=== PATIENT | female | born 1990 | race Hispanic/Latino ===

== ENCOUNTER 2017-04-13 14:39 | Emergency (ER) | payer BC, OTHER ==
[2017-04-13 15:54] VITALS: BMI 29.9
[2017-04-13 16:17] LABS: RBC URINE 1 /hpf (0-3); URINE BACTERIA RARE (<OCC); URINE BILIRUBIN NEGATIVE (NEGATIVE); URINE BLOOD NEGATIVE (NEGATIVE); URINE COLOR COLORLESS (YELLOW); URINE GLUCOSE (UA) NEG (Normal); URINE KETONE NEGATIVE (NEGATIVE); URINE LEUKOCYTE ESTERASE NEG Leu/uL (Negative); URINE PROTEIN NEGATIVE (NEGATIVE); URINE UROBILINOGEN 0.2-1.0 mg/dL (0.2-1.0); WBC URINE < 1 /hpf (0-5)
--- NOTE | 2017-04-13 17:00 | US ---
PROCEDURE: Ultrasound evaluation of the pelvis to measure the cervical length HISTORY: cramps COMPARISON: No prior similar study available for comparison. TECHNIQUE: Limited ultrasound examination of the pelvis was performed to evaluate the uterine cervical length. LMP: 11/16/2016. FINDINGS: The uterine cervix is closed and measures 2.3 centimeter. Trace amount of fluid seen in the cervix. IMPRESSION: Trace amount of fluid seen in the cervix. The cervix measures 2.3 centimeter.
--- NOTE | 2017-04-13 18:50 | OBHP ---
Datetime: 04/13/2017 16:01 IP Adm Impression: , intrauterine IP Admit Plan: Observation/Evaluation Admit Comment, IP Provider: 26 yo at 21+1 wks w/ EDC 08/23/2017 c/o cramps in lower abdomen, and painful ctxns in vagina, reports that venkat has had these sx throughout the preg, consistentl sin ce Wed. Pt reports yellow liquid started a few days ago. Pt's mother reports that she "did a little too much" on Sun. Pt denies VB, reports FM. Pt denies dysuria, itch. PMH: Asthma POBhx: TAB 2006 SAB 2007 TAB 2008 Twisting Department End Finder hx: 11 x regular Pt denies STDs, h/o abn paps? PSH: None All: NKDA Fam hx: MGM breast ca, MGF throat cancer, M great GF breast cancer, M aunt bone cancer Social hx: Pt reports that she quit smoking and MJ 2 months ago, denies alcohol use PE: AFVSS Gen'l Pt appears comfortable lying in bed Abd: soft, positive suprapubic tenderness, gravid Ext: NT Spec: white nl appearing d/c, no pool, nitrazine neg VE: closed/ thick A/P: 26 yo at 21+1 wks w/ vaginal contractions Ua negative, urine cx sent U/s: Cervical length 2.3 cm Case discussed w/ Dr. Monroy. Pt to go to [facility] tomorrow am for repeat cervical length a nd possible cerclage Plan dicussed w/ pt and her mom. All questions answered. Pt discharged home Extremities - PN: Normal Abdomen - PN: Normal General - PN: Normal FHR - Baseline A Provider: 140 Membranes, Provider: Intact Contraction Comments Provider: none Pool Provider: Positive Nitrazine Provider: Negative Vital Signs Provider: Reviewed IP Chief Complaint: Uterine contractions NICHD Variability Prov Fetus A: Moderate 6-25bpm NICHD Decel Fetus A IP Provider: None Dilatation, Provider: 0 Effacement, Provider: 0 Station, Provider: -3 Genitourinary Exam: Normal
--- NOTE | 2017-04-13 18:52 | OBDCSUM ---
Datetime: 04/13/2017 18:42 Discharged to, Provider: Home Follow up at, Provider: Disch Instr Activity: Normal activity Disch Instr Diet: Regular Discharge Instructions, Provider: Routine instructions given Discharge Time: 04/13/2017 18:45 Follow up in weeks, Provider: TOMORROW 04/14/17 at 0900 [facility] in [place], [place] Disch Referrals: None Contraception discussed, Prov: No Discharge Diagnosis Prov Other: Short cervical length
== END 2017-04-13 19:35 | disposition home or self-care (01) ==
LOC: H.EROB2 14:39
DX: O26.92 Pregnancy related conditions, unspecified, second trimester (principal); R10.2 Pelvic and perineal pain; Z3A.21 21 weeks gestation of pregnancy

== ENCOUNTER 2017-04-24 18:46 | Emergency (ER) | payer BC, OTHER ==
[2017-04-24 19:47] LABS: RBC URINE 1 /hpf (0-3); URINE BACTERIA RARE (<OCC); URINE BILIRUBIN NEGATIVE (NEGATIVE); URINE BLOOD NEGATIVE (NEGATIVE); URINE COLOR YELLOW (YELLOW); URINE GLUCOSE (UA) NEG (Normal); URINE KETONE NEGATIVE (NEGATIVE); URINE LEUKOCYTE ESTERASE NEG Leu/uL (Negative); URINE PROTEIN NEGATIVE (NEGATIVE); URINE UROBILINOGEN 0.2-1.0 mg/dL (0.2-1.0); WBC URINE 1 /hpf (0-5)
--- NOTE | 2017-04-24 19:57 | OBHP ---
Datetime: 04/24/2017 19:15 IP Adm Impression: , intrauterine ; No Active Labor IP Admit Plan: Observation/Evaluation Admit Comment, IP Provider: 26yo G 6 P 0050 IUP at 22w5d c/o back pain since earlier morning. Pain localized to right side. no meds taken. Unable to lie down comfortably. 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) A; IUP at 22w back pain appears to be musculoskeletal PLAN: tylenol 650mg po one dse check UA condition expained to pt and she understood...Dr Hagen aware of above...will wait for results of UA Extremities - PN: Normal Abdomen - PN: Normal Back - PN: Abnormal Breast - PN: Not Done Lungs - PN: Normal Heart - PN: Normal Thyroid - PN: Normal Neurologic - PN: Normal HEENT - PN: Normal General - PN: Normal FHR - Baseline A Provider: + Membranes, Provider: Intact Contraction Comments Provider: n/a Comments, ACOG Physical Exam: Back : right sided lumbar/thoracic paraspinal tenderness; no CVA tende rness ROS: General: no weakness; no fatigue HEENT: no CHANG; no visual dist CV: No CP; no palpitations Resp: no cough; no SOB GI: no N/V/D/ : no F/U/D Back: localized back pain on right side Pool Provider: Negative IP Hx Assessment: The History has been Reviewed and is Current EGA AdmitDate IP: 22.5 Vital Signs Provider: Reviewed IP Chief Complaint: Other Dilatation, Provider: closed Genitourinary Exam: Normal
[2017-04-24 19:58] VITALS: TEMP 98
== END 2017-04-24 20:30 | disposition home or self-care (01) ==
LOC: H.EROB2 18:46
DX: O26.92 Pregnancy related conditions, unspecified, second trimester (principal); M54.9 Dorsalgia, unspecified; Z3A.22 22 weeks gestation of pregnancy; O26.872 Cervical shortening, second trimester; O09.92 Supervision of high risk pregnancy, unspecified, second trimester

== ENCOUNTER 2017-04-25 17:27 | Emergency (ER) | payer BC, OTHER ==
[2017-04-25 18:54] LABS: HEMATOCRIT 32.8 % (34.0-47.0); MEAN CELL VOLUME 91.4 fl (81.0-99.0); MEAN CORPUSCULAR HGB CONC 33.9 g/dL (33.0-37.0); RED CELL DISTRIBUTION WIDTH 13.2 % (11.5-14.5); WHITE BLOOD COUNT 15.6 K/uL (4.8-10.8)
[2017-04-25 19:13] LABS: ALB/GLOB RATIO 1.3 (1.0-2.1); ALKALINE PHOSPHATASE 51 U/L (38-126); ALT/SGPT 57 U/L (9-52); AST/SGOT 27 U/L (14-36); BILIRUBIN,TOTAL 0.2 mg/dl (0.2-1.3); BLOOD UREA NITROGEN 10 mg/dl (7-17); CALCIUM 9.3 mg/dL (8.4-10.2); CARBON DIOXIDE 23 mmol/L (22-30); CHLORIDE 104 mmol/L (98-107); GFR AFRICAN-AMERICAN > 60; GLUCOSE,RANDOM 95 mg/dL (65-105); POTASSIUM 3.4 MMOL/L (3.6-5.0); SODIUM 137 mmol/l (132-148); TOTAL PROTEIN 6.3 G/DL (6.3-8.2)
--- NOTE | 2017-04-25 19:30 | US ---
EXAM: US Retroperitoneal Complete, Renal CLINICAL HISTORY: 26 years old, female; Pain; Abdominal pain; Other: Rt back; ; Additional info: Pain right back area TECHNIQUE: Real-time ultrasound of the retroperitoneum (complete) with image documentation. EXAM DATE/TIME: 04/25/2017 6:29 PM COMPARISON: No relevant prior studies available. FINDINGS: Right kidney: Demonstrates very mild hydronephrosis. Otherwise within normal limits in appearance. Measures 12.7 cm in length. No renal calculi are visible sonographically. Renal cortical echogenicity is within normal limits. Left kidney: Within normal limits in appearance. Measures 12.4 cm in length. No evidence of hydronephrosis. No renal calculi are visible sonographically. Renal cortical echogenicity is within normal limits. Bladder: Poorly distended, which limits evaluation. Aorta: Incompletely seen due to gas. Imaged portions of the proximal aorta appear unremarkable. IVC: Imaged portions appear unremarkable. Flow is seen on color and Doppler imaging. Other findings: Fetus is visualized in the pelvis. IMPRESSION: Very mild right hydronephrosis. This could be -related. Otherwise, no significant acute sonographic abnormality of the kidneys identified. See above for remaining findings.
[2017-04-25 20:43] LABS: RBC URINE 3 /hpf (0-3); URINE BACTERIA RARE (<OCC); URINE BILIRUBIN NEGATIVE (NEGATIVE); URINE BLOOD NEGATIVE (NEGATIVE); URINE COLOR YELLOW (YELLOW); URINE GLUCOSE (UA) NEG (Normal); URINE KETONE TRACE mg/dL (NEGATIVE); URINE LEUKOCYTE ESTERASE NEG Leu/uL (Negative); URINE PROTEIN NEGATIVE (NEGATIVE); URINE UROBILINOGEN 0.2-1.0 mg/dL (0.2-1.0); WBC URINE 2 /hpf (0-5)
[2017-04-25 23:06] VITALS: BP 109/79; PULSE 79; RESP 20; TEMP 98.2
== END 2017-04-25 22:30 | disposition home or self-care (01) ==
LOC: H.EROB2 17:27
DX: O26.92 Pregnancy related conditions, unspecified, second trimester (principal); M54.9 Dorsalgia, unspecified; Z3A.22 22 weeks gestation of pregnancy

== ENCOUNTER 2017-08-09 08:31 | Inpatient (IN) | payer BC, OTHER ==
[2017-08-09 08:55] VITALS: BMI 36.9
[2017-08-09] MEDS ORDERED: Lactated Ringer's 1,000 ML IV SCH (09:00)
[2017-08-09] MEDS: Lactated Ringer's 1,000 ML IV SCH ×2 (09:20→10:40)
[2017-08-09 09:28] LABS: BASO % 0.3 % (0.0-2.0); EOS # 0.2 K/uL (0.0-0.7); EOS % 1.7 % (0.0-4.0); HEMATOCRIT 31.1 % (34.0-47.0); LYMPH # 2.2 K/uL (1.0-4.3); LYMPH % 19.8 % (20.0-40.0); MEAN CELL VOLUME 87.2 fl (81.0-99.0); MEAN CORPUSCULAR HEMOGLOBIN 28.6 pg (27.0-31.0); MEAN CORPUSCULAR HGB CONC 32.8 g/dL (33.0-37.0); MEAN PLATELET VOLUME 9.8 fl (7.2-11.7); MONO # 1.3 K/uL (0.0-0.8); MONO % 11.8 % (0.0-10.0); NEUT # 7.4 K/uL (1.8-7.0); NEUT % 66.4 % (50.0-75.0); RED CELL DISTRIBUTION WIDTH 13.6 % (11.5-14.5); WHITE BLOOD COUNT 11.1 K/uL (4.8-10.8)
[2017-08-09] MEDS ORDERED: Fentanyl/Bupivacaine HCl 250 ML EPI ONE (10:41)
[2017-08-09] MEDS ORDERED: Bupivacaine HCl 0.25% PF (10 ml) Inj ONE (10:42)
[2017-08-09] MEDS ORDERED: Oxytocin 30 units/LR 500ML 30 U/500 ML BAG IV ONE (12:01)
[2017-08-09] MEDS ORDERED: Lidocaine 1% Inj (20ml) ONE (15:45)
--- NOTE | 2017-08-09 17:08 | OBADHP ---
Datetime: 08/09/2017 17:00 Admit Comment, IP Provider: term uneventful admitted with srom for delivery Pelvic Type - PN: Adequate Extremities - PN: Normal Abdomen - PN: Normal Back - PN: Normal Breast - PN: Normal Lungs - PN: Normal Heart - PN: Normal Thyroid - PN: Normal Neurologic - PN: Normal HEENT - PN: Normal General - PN: Normal Presentation-Admit: Vertex FHR - Baseline A Provider: 140 Amniotic Fluid Color, Provider: Clear Membranes, Provider: Ruptured Contraction Comments Provider: irregular Gestation - Est Wks by US: 38.0 Pool Provider: Positive Ferning Provider: Positive Vital Signs Provider: Reviewed; Within Normal Limits IP Chief Complaint: Uterine contractions NICHD Variability Prov Fetus A: Moderate 6-25bpm NICHD Accel Fetus A IP Provider: 10X10 NICHD Decel Fetus A IP Provider: None Dilatation, Provider: 3 Station, Provider: -2 Genitourinary Exam: Normal DTRs - PN: Normal EGA AdmitDate IP: 38.0 IP Adm Impression: Term, intrauterine ; Ruptured Membranes IP Admit Plan: Admit to unit; Initiate labor protocol; Initiate labor augmentation protocol Datetime: 04/24/2017 19:15 Comments, ACOG Physical Exam: Back : right sided lumbar/thoracic paraspinal tenderness; no CVA tende rness ROS: General: no weakness; no fatigue HEENT: no CHANG; no visual dist CV: No CP; no palpitations Resp: no cough; no SOB GI: no N/V/D/ : no F/U/D Back: localized back pain on right side IP Hx Assessment: The History has been Reviewed and is Current FHR Category Provider Fetus A: Category I Datetime: 04/13/2017 16:01 Nitrazine Provider: Negative Effacement, Provider: 0
[2017-08-09] MEDS ORDERED: Benzocaine/Menthol SPRAY TOP PRN ×2 (21:53→23:26)
[2017-08-09] MEDS ORDERED: Oxycodone/Acetaminophen 5/325 mg Tab PO PRN ×3 (21:53→23:26)
--- NOTE | 2017-08-09 21:53 | OBDS ---
MATERNAL INFORMATION Estimated Blood Loss (ml): 250ml Maternal Complications: None Provider Comments: delivery of live baby boy 9/9 clear fluid first degree laceration and repai r LABOR SUMMARY EDC: 08/23/2017 00:00 No. Babies in Womb: 1 LABOR INFORMATION Reason for Induction: Not Applicable Group B Beta Strep: Negative (Annotations: 08/01/17) Steroids Given: None Reason Steroids Not Administered: Not Applicable MEMBRANES Membranes Rupture Method: Spontaneous Rupture of Membranes: 08/09/2017 06:50 Amniotic Fluid Color: Clear Amniotic Fluid Amount: Small Amniotic Fluid Odor: Normal VAGINAL DELIVERY Episiotomy: None Laceration Extension: N/A Laceration Type: Perineal Laceration Repair Note: repair of first degree laceration with 2-0 chromic Count Comment: correct PRESENTATION/POSITION BABY A Presentation: Cephalic PLACENTA INFORMATION BABY A Placenta Method of Delivery: Spontaneous
[2017-08-10] MEDS: Oxycodone/Acetaminophen 5/325 mg Tab PO PRN ×2 (01:14→21:30)
[2017-08-10 07:18] LABS: HEMATOCRIT 29.2 % (34.0-47.0); MEAN CELL VOLUME 86.7 fl (81.0-99.0); MEAN CORPUSCULAR HEMOGLOBIN 28.7 pg (27.0-31.0); MEAN CORPUSCULAR HGB CONC 33.1 g/dL (33.0-37.0); RED CELL DISTRIBUTION WIDTH 14.1 % (11.5-14.5); WHITE BLOOD COUNT 17.8 K/uL (4.8-10.8)
--- NOTE | 2017-08-10 08:07 | OBPPN ---
Datetime: 08/10/2017 08:05 PP Pain Prov: Within normal limits PP Nausea Prov: Denies PP Flatus Prov: Yes PP BM Prov: No PP Breasts Prov: Normal PP Heart Prov: Normal PP Lungs Prov: Normal PP Abdomen/Uterus Prov: Normal PP Lochia Prov: Normal PP Vulva/Perineum Prov: Normal PP CVA Tenderness Prov: Normal PP Extremities Prov: Normal PP Progress Prov: Normal PP Impression Prov: Normal progression PP Plan Prov: Continue present management PP Progress Note Prov: stable ppd1 no complaints continue present care IP PP Procedures: None
[2017-08-10] MEDS ORDERED: Influenza Vaccine 18yr & older 0.5 ML/45 MCG SYR IM ONE (10:24)
[2017-08-10] MEDS ORDERED: Pneumococcal 23-Valent Vaccine IM ONE (10:24)
[2017-08-10] MEDS: Benzocaine/Menthol (Cepacol) Lozenge PO PRN (21:30)
[2017-08-11] MEDS: Oxycodone/Acetaminophen 5/325 mg Tab PO PRN ×3 (03:05→14:15)
[2017-08-11] MEDS: Benzocaine/Menthol (Cepacol) Lozenge PO PRN ×3 (03:12→09:31)
--- NOTE | 2017-08-11 10:41 | OBPPN ---
Datetime: 08/11/2017 10:38 PP Pain Prov: Within normal limits PP Nausea Prov: Denies PP Flatus Prov: Yes PP BM Prov: Yes PP Breasts Prov: Normal PP Heart Prov: Normal PP Lungs Prov: Normal PP Abdomen/Uterus Prov: Normal PP Lochia Prov: Normal PP Vulva/Perineum Prov: Normal PP CVA Tenderness Prov: Normal PP Extremities Prov: Normal PP Progress Prov: Normal PP Impression Prov: Normal progression PP Plan Prov: Continue present management PP Progress Note Prov: stable ppd2 continue present care IP PP Procedures: None
--- NOTE | 2017-08-11 10:46 | OBDCSUM ---
Datetime: 08/11/2017 10:41 Discharged to, Provider: Home Follow up at, Provider: Dr Rosado Disch Instr Activity: May be up to bathroom; May be up for meals; May Shower Disch Instr Diet: Regular Discharge Instructions, Provider: Routine instructions given Discharge Diagnosis, Provider: Term Delivered Discharge Time: 08/11/2017 10:41 Follow up in weeks, Provider: 5-6 weeks Disch Referrals: None Disch Activity Restrictions: No exercising; No lifting; No driving; Minimize stair-climbing; No sexu al activity; Nothing in vagina - [place], tampons, douche Discharge Comment, Provider: dc home today rto 5-6 weeks call office if any problem Contraception after Delivery: Undecided
[2017-08-12 01:50] VITALS: BP 134/81; PULSE 110; RESP 21; TEMP 98.2; O2SAT 97
== END 2017-08-11 15:30 | disposition home or self-care (01) | DRG 775 ==
LOC: H.EROB2 08:31 → H.L&D 08:54 → H.OB/GYN 23:55
PROVIDERS: ADMIT Specialist; ATTEND Specialist
PROC: 0HQ9XZZ Repair Perineum Skin, External Approach (ICD-10-PCS; principal; 2017-08-09)
PROC: 10E0XZZ Delivery of Products of Conception, External Approach (ICD-10-PCS; 2017-08-09)
PROC: 4A1HXCZ Monitoring of Products of Conception, Cardiac Rate, External Approach (ICD-10-PCS; 2017-08-09)
DX: O70.0 First degree perineal laceration during delivery (principal); Z37.0 Single live birth; Z3A.38 38 weeks gestation of pregnancy

== ENCOUNTER 2017-08-14 19:43 | Emergency (ER) | payer BC, OTHER ==
[2017-08-14 19:43] VITALS: BMI 36.9
[2017-08-14 19:59] VITALS: BP 128/81; PULSE 99; RESP 16; TEMP 97.8; O2SAT 100
--- NOTE | 2017-08-14 20:51 | ED PDOC ---
HPI: Wound Care - HPI Time Seen by Provider: 08/14/17 20:07 Chief Complaint (Nursing): Wound Check Chief Complaint (Provider): wound check History Per: Patient History Of Present Illness: 26 y/o female history of asthma presents for wound check. Patient had vaginal delivery 5 days ago and had first degree laceration repaired with sutures. Patient states she thinks one of the sutures may have opened yesterday while sitting down in a chair. Associated vaginal bleeding, since improved. Denies fever, nausea/vomiting, abdominal pain, vaginal discharge. Past Medical History Reviewed: Historical Data, Nursing Documentation, Vital Signs Vital Signs: Last Vital Signs Temp 97.8 F 08/14/17 19:57 Pulse 99 H 08/14/17 19:57 Resp 16 08/14/17 19:57 BP 128/81 08/14/17 19:57 Pulse Ox 100 08/14/17 19:57 - Medical History PMH: No Chronic Diseases, Asthma Denies: Depression, Diabetes, HTN - Surgical History Surgical History: No Surg Hx - Family History Family History: States: No Known Family Hx - Living Arrangements Living Arrangements: With Family - Home Medications Home Medications: Ambulatory Orders Medication Instructions Recorded No122/Iron/Folic Acid 1 tab PO DAILY 04/13/17 [ Multi Tablet] - Allergies Allergies/Adverse Reactions: Allergies Allergy/AdvReac Type Severity Reaction Status Date / Time No Known Allergies Allergy Verified 08/14/17 19:56 Review of Systems ROS Statement: Except As Marked, All Systems Reviewed And Found Negative Skin: Positive for: Other (vaginal laceration wound check) Physical Exam - Reviewed Nursing Documentation Reviewed: Yes Vital Signs Reviewed: Yes - Physical Exam Appears: Positive for: Well, Non-toxic, No Acute Distress Head Exam: Positive for: ATRAUMATIC, NORMAL INSPECTION, NORMOCEPHALIC Skin: Positive for: Normal Color Cardiovascular/Chest: Positive for: Regular Rate, Rhythm Respiratory: Positive for: Normal Breath Sounds Gastrointestinal/Abdominal: Positive for: Normal Exam, Bowel Sounds, Soft Pelvic Exam: Positive for: Other (open suture inferior to intraoitus; no wound dihescence or active bleeding noted. Exam chaperoned by Rocío OCHOA) Extremity: Positive for: Normal ROM Neurologic/Psych: Positive for: Alert, Oriented - ECG O2 Sat by Pulse Oximetry: 100 - Progress ED Course And Treament: Case discussed with Dr. Garvey, patient's Retail Administrative Assistant, advised follow up in office in am. Patient educated on these findings, follow up as instructed. Return to ED for worsening/concerning symptoms. Disposition - Clinical Impression Clinical Impression: Visit for wound check - Patient ED Disposition Is Patient to be Admitted: No Counseled Patient/Family Regarding: Diagnosis, Need For Followup - Disposition Disposition: Routine/Home Disposition Time: 21:24 Condition: STABLE Additional Instructions: Follow up with Dr. Garvey tomorrow morning.
== END 2017-08-14 21:53 | disposition home or self-care (01) ==
LOC: H.ER 19:43
DX: Z48.89 Encounter for other specified surgical aftercare (principal)